=== PATIENT | male | born 1960 | race Caucasian/White ===

== ENCOUNTER 2018-06-15 11:33 | Emergency (ER) | payer BC, SELFPAY ==
[2018-06-15 11:46] VITALS: BP 147/95; PULSE 54; RESP 18; TEMP 36.5; O2SAT 98
[2018-06-15 12:01] VITALS: RESP 16
--- NOTE | 2018-06-15 12:36 | DI.CT_ITS ---
SYMPTOM/DIAGNOSIS: WT LOSS, MEMORY, PERSONALITY CHANGES NONCONTRAST HEAD CT: No priors. There is a normal molina white matter differentiation. The ventricles are intact. The basilar cisterns are patent. No acute infarct, hemorrhage, midline shift or mass effect is identified. The ventricles are intact. The basilar cisterns are patent. There is mild mucosal thickening in the left maxillary sinus. The remaining visualized paranasal sinuses are clear. The mastoid air cells are well pneumatized. The calvarium is intact. IMPRESSION: No acute intracranial process.
--- NOTE | 2018-06-15 12:37 | DI.RAD_ITS ---
SYMPTOM/DIAGNOSIS: WT LOSS, NIGHT SWEATS PA AND LATERAL CHEST: No priors for comparison. Heart size and pulmonary vasculature are within normal limits. The right lung is clear and well expanded. There is a small left pleural effusion. There is left basilar infiltrate which may represent atelectasis or pneumonia. The bones are intact. IMPRESSION: Small left basilar infiltrate which may represent atelectasis or pneumonia. Small left pleural effusion.
--- NOTE | 2018-06-15 12:40 | ED.GENADUL_ITS ---
Discharge Plan Disposition Patient Disposition: HOME Condition: Stable Discharge Details Chief Complaint: GenMedical Clinical Impression: Pneumonia, Weight loss, Night sweats, Memory changes Primary Care Provider: Gilbert Nicolas ED Provider: Mary Middleton Home Meds and New Rx's Prescriptions: Continued tadalafil [Cialis] 5 MG tablet 5 mg PO DAILY Qty: 30 RF: 5 No Action sildenafil (antihypertensive) 20 mg tablet 20 - 100 mg PO DAILY PRN (Reason: sexual activity) Qty: 30 RF: 5 Discharge Instructions Instructions: Pneumonia (ED) Additional Instructions: Please return immediately to the emergency department if you develop any new or worsening symptoms or if you become otherwise concerned. It is extremely imp ortant that you make an appointment to be seen by your primary care doctor within the next 1-2 weeks in follow-up for this visit Referrals: Gilbert Nicolas [Primary Care Provider] - Discharge Data Discharge Date/Time-TO BE ENTERED AT DEPARTURE: 06/15/18 14:23 Medical Decision Making Dean Kaur is a 58 y/o man without h/o major medical problems presenting to the emergency department with 1 year of weight loss, 6 months of night sweats and mild memory changes/irritable mood, and a few weeks of cough. On exam Pt is very well and non-toxic appearing. Normal cardiopulmonary exam. Benign neuro exam. Concern for PNA vs other infection vs neoplasm vs autoimmune process vs other. Exam/hx not c/w sepsis, CVA, ACS, other acute emergent life threatening process. Plan for CT head, CXR, screening labs. CT head okay. Lbas non-diagnostic. CXR shows small pleural effusion, possible PNA. Given recent cough will plan to treat with azithromycin. No other emergent condition identified. I had a lengthy discussion with the Pt that he needs further testing as an outpt, RTED precautions and importance of outpt f/u with P CP for further evaluation. Pt verbalizes understanding of the plan. Medical Records Medical records reviewed: Yes I reviewed the patient's medical records. Imaging Data Radiologic Study: Attestation: I personally reviewed and interpreted this imaging study as follows: Radiologist's impression: NONCONTRAST HEAD CT: No priors. There is a normal molina white matter differentiation. The ventricles are intact. The basilar cisterns are patent. No acute infarct, hemorrhage, midline shift or mass effect is identified. The ventricles are intact. The basilar cisterns are patent. There is mild mucosal thickening in the left maxillary sinus. The remaining visualized paranasal sinuses are clear. The mastoid air cells are well pneumatized. The calvarium is intact. IMPRESSION: No acute intracranial process. PA AND LATERAL CHEST: No priors for comparison. Heart size and pulmonary vasculature are within normal limits. The right lung is clear and well expanded. There is a small left pleural effusion. There is left basilar infiltrate which may represent atelectasis or pneumonia. The bones are intact. IMPRESSION: Small left basilar infiltrate which may represent atelectasis or pneumonia. Small left pleural effusion. Lab Data Lab results reviewed: Yes I reviewed the patient's lab results. Laboratory Tests Range/Units 06/15/18 06/15/18 06/15/18 12:45 12:45 12:45 WBC (4.4-10.8) k/cumm RBC (4.50-6.00) m/cumm Hgb (13.5-17.5) g/dL Hct (40.0-50.0) % MCV (80-95) fL MCH (27.0-33.0) pg MCHC (32.0-36.0) g/dL RDW (11.8-14.1) % Plt Count (130-400) x1000/uL MPV (8.0-11.0) fL Immature Gran % Neutrophils % Lymphocytes % Monocytes % Eosinophils % Basophils % Absolute Neutrophils (1.2-6.7) k/cumm Absolute Lymphocytes (1.2-3.4) k/cumm Absolute Monocytes (0.11-0.7) k/cumm Absolute Eosinophils (0.0-0.7) k/cumm Absolute Basophils (0.0-0.2) k/cumm PT (9.3-11.0) sec 10.0 INR (1.0-3.5) 1.0 Sodium (136-145) mmol/L 140 Potassium (3.5-5.1) mmol/L 4.2 Chloride (98-107) mmol/L 104 Carbon Dioxide (21.0-32.0) mmol/L 28.9 Anion Gap (3-11) mmol/L 7.1 BUN (7-18) mg/dL 14 Creatinine (0.70-1.30) mg/dL 0.96 Estimated GFR/1.73 m2 (mL/min/1.73m2) >= 60.00 Glucose (70-100) mg/dL 110 H Calcium (8.5-10.1) mg/dL 9.0 Total Bilirubin (0.2-1.0) mg/dL 0.6 AST (15-37) U/L 12 L ALT (12-78) U/L 18 Alkaline Phosphatase (46-116) U/L 50 Total Protein (6.4-8.2) g/dL 7.3 Albumin (3.4-5.0) g/dL 3.7 TSH (0.358-3.74) uIU/mL 3.05 Urine Color (Yellow) Urine Clarity Urine pH (5-8) Ur Specific Glade (1.005-1.025) Urine Protein (Negative) mg/dL Urine Ketones (Negative) mg/dL Urine Blood (Negative) Urine Nitrite (Negative) Urine Bilirubin (Negative) Urine Urobilinogen (Up TO 0.2) EU/dL Ur Leukocyte Esterase (Negative) Urine Glucose (Negative) mg/dL Range/Units 06/15/18 06/15/18 12:45 12:45 WBC (4.4-10.8) k/cumm 6.69 RBC (4.50-6.00) m/cumm 4.20 L Hgb (13.5-17.5) g/dL 13.5 Hct (40.0-50.0) % 39.6 L MCV (80-95) fL 94.3 MCH (27.0-33.0) pg 32.1 MCHC (32.0-36.0) g/dL 34.1 RDW (11.8-14.1) % 12.9 Plt Count (130-400) x1000/uL 247 MPV (8.0-11.0) fL 9.6 Immature Gran % 0.1 Neutrophils % 65.7 Lymphocytes % 21.1 Monocytes % 7.3 Eosinophils % 5.4 Basophils % 0.4 Absolute Neutrophils (1.2-6.7) k/cumm 4.39 Absolute Lymphocytes (1.2-3.4) k/cumm 1.41 Absolute Monocytes (0.11-0.7) k/cumm 0.49 Absolute Eosinophils (0.0-0.7) k/cumm 0.36 Absolute Basophils (0.0-0.2) k/cumm 0.03 PT (9.3-11.0) sec INR (1.0-3.5) Sodium (136-145) mmol/L Potassium (3.5-5.1) mmol/L Chloride (98-107) mmol/L Carbon Dioxide (21.0-32.0) mmol/L Anion Gap (3-11) mmol/L BUN (7-18) mg/dL Creatinine (0.70-1.30) mg/dL Estimated GFR/1.73 m2 (mL/min/1.73m2) Glucose (70-100) mg/dL Calcium (8.5-10.1) mg/dL Total Bilirubin (0.2-1.0) mg/dL AST (15-37) U/L ALT (12-78) U/L Alkaline Phosphatase (46-116) U/L Total Protein (6.4-8.2) g/dL Albumin (3.4-5.0) g/dL TSH (0.358-3.74) uIU/mL Urine Color (Yellow) Yellow Urine Clarity Clear Urine pH (5-8) 6.5 Ur Specific Glade (1.005-1.025) 1.020 Urine Protein (Negative) mg/dL Negative Urine Ketones (Negative) mg/dL Negative Urine Blood (Negative) Negative Urine Nitrite (Negative) Negative Urine Bilirubin (Negative) Negative Urine Urobilinogen (Up TO 0.2) EU/dL 0.2 Ur Leukocyte Esterase (Negative) Negative Urine Glucose (Negative) mg/dL Negative HPI General Mode of arrival: ambulatory . Date/Time Provider Initiated Documentation: 06/15/18 11:57 . Limitations to Documentation: no limitations . Information obtained by: patient, RN notes reviewed and old records reviewed . HPI Narrative: Dean Kaur is a 58 y/o man without reported h/o major medical problems presenting to the emergency department with multiple complaints. He reports that over the past year he has lost at 60 lbs without trying. For the past 6 months or so he has noticed night sweats, increased fatigue, mild problems with short term memory, and intermittent skin rashes. No current rash. He reports cough over the past few weeks. He notes small area of bruising to right upper eyelid without known h/o trauma. He denies any pain, SOB, fevers, n/v/d, numbness/weakness/tingling, melena or rectal bleeding. He reports that his appetite has been normal and he is eating and drinking as usual. No foreign travel in the past 2 years. Pt reports that he currently feels fine, but came to the emergency department because his girlfriend is concerned that he might have cancer and wanted him to be seen. Related Data Home Medications Medication Instructions Recorded Confirmed tadalafil [Cialis] 5 mg PO DAILY #30 tab-cap 01/20/18 07/01/18 sildenafil (antihypertensive) 20 20 - 100 mg PO DAILY PRN #30 tab 07/01/18 07/01/18 mg tablet Previous Rx's Medication Instructions Recorded tadalafil [Cialis] 5 mg PO DAILY #30 tab-cap 01/20/18 sildenafil (antihypertensive) 20 20 - 100 mg PO DAILY PRN #30 tab 07/01/18 mg tablet Allergies Allergy/AdvReac Type Severity Reaction Status Date / Time No Known Allergies Allergy Unverified 07/01/18 11:11 General Stated Complaint: GenMedical ENMANUEL: 3 Review of Systems Review of Systems Constitutional: denies fevers, reports weight loss and night sweats Eyes: denies eye pain ENT: denies facial pain, dental pain, sore throat Cardiovascular: denies chest pain, edema Respiratory: denies SOB, reports cough GI: denies abdominal pain, vomiting, diarrhea : denies flank pain MSK: denies back pain, neck pain, arthralgias, myalgias Skin: denies rash, reports intermittent red itchy rash Neuro: denies headaches, lightheadedness, weakness PFSH Family History Grandfather Essential hypertension Heart disease Grandmother Diabetes Neoplasm Mother Essential hypertension Depression Father No problems noted. Sister Depression Brother Heart disease Daughter Diabetes Depression Daughter No problems noted. Exam Narrative Exam Narrative: Constitutional: well and [id number], pleasant, conversing normally HENT: head atraumatic, normocephalic normal inspection, mucous membranes moist Eyes: conjunctiva normal, sclera normal, PERRLA 3mm b/l, 3-4mm area of ecchymoses without edema to right upper eyelid, Neck: no stridor, normal ROM, trachea midline Chest: normal inspection Resp: normal work of breathing, LCTAB Cardio: normal rate, normal rhythm, no murmur appreciated GI: abdomen soft, non-tender, non-distended Back: normal inspection, no rash Skin: warm, dry, normal color, no rash Neuro: alert, not altered, charge loader 2-12 intact, motor 5/5 throughout, normal gait, normal tone Ext: no edema Psych: normal mood, normal affect, normal behavior Course Vital Signs Temperature 36.5 C 06/15/18 11:46 Pulse 54 L 06/15/18 11:46 Respiratory Rate 18 06/15/18 11:46 Blood Pressure 147/95 H 06/15/18 11:46 Pulse Oximetry 98 06/15/18 11:46 Temperature 36.5 C 06/15/18 11:46 Pulse 54 L 06/15/18 11:46 Respiratory Rate 16 06/15/18 12:01 Respiratory Effort 06/15/18 12:03 Blood Pressure 147/95 H 06/15/18 11:46 Blood Pressure Position Sitting 06/15/18 11:46 Pulse Oximetry 98 06/15/18 11:46 Oxygen Delivery Method Room Air 06/15/18 11:46 Oxygen Flow Rate 0 06/15/18 11:46 Pain Level 0 06/15/18 11:46 Comment 06/15/18 11:46
--- NOTE | 2018-06-15 12:47 | NUR.NOTE ---
patient examined by MD, POC xray, CT and labwork Nursing Note:
[2018-06-15 12:52] LABS: Abs Immature Grans 0.01 k/cumm (0.0-0.09); Absolute Basophil Count 0.03 k/cumm (0.0-0.2); Absolute Eosinophil Count 0.36 k/cumm (0.0-0.7); Absolute Lymphocyte Count 1.41 k/cumm (1.2-3.4); Absolute Monocyte Count 0.49 k/cumm (0.11-0.7); Absolute Neutrophil Count 4.39 k/cumm (1.2-6.7); Basophils % 0.4; Eosinophils % 5.4; HCT 39.6 % (40.0-50.0); HGB 13.5 g/dL (13.5-17.5); Immature Grans % 0.1; Lymphocytes % 21.1; Mean Corp. HGB Concentration 34.1 g/dL (32.0-36.0); Mean Corpuscular Hemoglobin 32.1 pg (27.0-33.0); Mean Corpuscular Volume 94.3 fL (80-95); Mean Platelet Volume 9.6 fL (8.0-11.0); Monocytes % 7.3; Neutrophils % 65.7; Platelet Count 247 x1000/uL (130-400); RBC Distribution Width 12.9 % (11.8-14.1); White Blood Cell Count 6.69 k/cumm (4.4-10.8)
[2018-06-15 13:00] LABS: Bilirubin Negative (Negative); Blood Negative (Negative); Clarity Clear; Glucose Negative (Negative); Ketones Negative (Negative); Leukocyte Esterase Negative (Negative); Nitrite Negative (Negative); Urobilinogen 0.2 EU/dL (Up TO 0.2); pH 6.5 (5-8)
[2018-06-15 13:05] LABS: ALT 18 U/L (12-78); AST 12 U/L (15-37); Albumin 3.7 g/dL (3.4-5.0); Alkaline Phosphatase 50 U/L (46-116); Anion Gap 7.1 mmol/L (3-11); BUN 14 mg/dL (7-18); Bilirubin, Total 0.6 mg/dL (0.2-1.0); CO2 28.9 mmol/L (21.0-32.0); CREATININE 0.96 mg/dL (0.70-1.30); Chloride 104 mmol/L (98-107); Glucose 110 mg/dL (70-100); Potassium 4.2 mmol/L (3.5-5.1); Sodium 140 mmol/L (136-145); Total Protein 7.3 g/dL (6.4-8.2)
[2018-06-15 13:15] LABS: TSH (W/Ref FT4) 3.05 uIU/mL (0.358-3.74)
[2018-06-15] MEDS: Azithromycin 250 MG TAB 500 MG PO (14:21)
--- NOTE | 2018-06-15 14:22 | NUR.NOTE ---
patient medicated per MD order. Nursing Note:
[2018-06-15 14:34] VITALS: BP 126/69; PULSE 66; RESP 16; TEMP 37; O2SAT 97
== END 2018-06-15 14:23 | disposition home or self-care (01) ==
PROVIDERS: Emergency Provider Student in an Organized Health Care Education/Training Program; PCP Family Medicine
DX: J18.9 Pneumonia, unspecified organism (principal); R63.4 Abnormal weight loss; R61 Generalized hyperhidrosis; R41.3 Other amnesia
CPT/HCPCS: 36415; 80053; 99284; 70450; 71046; 81003; 84443; 85025; 85610

== ENCOUNTER 2018-09-07 02:15 | Outpatient (RCR) | payer BC, SELFPAY ==
[2018-09-07] MEDS: Cosyntropin 0.25 MG VIAL IVP (07:27)
[2018-09-07 16:34] LABS: Cortisol (Baseline) 17 ug/dl
== END 2018-09-27 23:59 | disposition home or self-care (01) ==
LOC: INF 02:15
PROVIDERS: PCP Family Medicine; Visit Provider Family Medicine
DX: R63.4 Abnormal weight loss (principal); R61 Generalized hyperhidrosis
CPT/HCPCS: 36415; 80400; 82533; 87206; 96374; J0834

== ENCOUNTER 2021-01-15 03:19 | Outpatient (CLI) | payer MEDICAID, SELFPAY ==
[2021-01-15 16:22] LABS: Abs Immature Grans 0.02 10^3/uL (0.0-0.06); Absolute Basophil Count 0.04 10^3/uL (0.0-0.2); Absolute Eosinophil Count 0.16 10^3/uL (0.0-0.7); Absolute Lymphocyte Count 0.69 10^3/uL (1.2-3.4); Absolute Monocyte Count 0.54 10^3/uL (0.1-0.8); Absolute Neutrophil Count 3.36 10^3/uL (1.2-6.7); Basophils % 0.8; Eosinophils % 3.3; HGB 9.6 g/dL (13.5-17.5); Immature Grans % 0.4; Lymphocytes % 14.3; MCH 28.9 pg (27.0-33.0); MCHC 33.1 % (32.0-36.0); MCV 87.3 fL (80-95); MPV 9.6 fL (8.0-11.0); Monocytes % 11.2; Nucleated RBC 0 %; Platelet Count 300 10^3/uL (130-400); RBC 3.32 10^6/uL (4.36-5.78); RDW 19.3 % (11.8-14.1); RDW-SD 61.9 fL; WBC 4.81 10^3/uL (4.4-10.8)
[2021-01-15 16:38] LABS: ALT 16 U/L (16-63); AST 16 U/L (15-37); Albumin 3.5 g/dL (3.4-5.0); Alkaline Phosphatase 98 U/L (46-116); Anion Gap 6.5 mmol/L (3-11); BUN 13 mg/dL (7-18); Bilirubin, Total 0.8 mg/dL (0.2-1.0); CO2 28.5 mmol/L (21.0-32.0); Calcium 8.8 mg/dL (8.5-10.1); Chloride 99 mmol/L (98-107); Glucose 89 mg/dL (74-106); NT-proBNP 1142 pg/mL (<300); Potassium 4.6 mmol/L (3.5-5.1); Sodium 134 mmol/L (136-145); Total Protein 7.8 g/dL (6.4-8.2)
== END 2021-01-15 03:20 | disposition home or self-care (01) ==
LOC: LBO 03:19
PROVIDERS: PCP Family Medicine; Visit Provider Internal Medicine Medical Oncology
DX: C34.92 Malignant neoplasm of unspecified part of left bronchus or lung (principal); R60.0 Localized edema
CPT/HCPCS: 36415; 80053; 83735; 83880; 85025